=== PATIENT | female | born 1990 | race Caucasian/White ===

== ENCOUNTER 2016-07-17 21:06 | Outpatient (CLI) | payer MEDICAID ==
[~2016-07-17] VITALS: Ht 148.6 cm; Wt 61.5 kg
[2016-07-17 21:30] VITALS: BP 112/69; PULSE 73; RESP 18
[2016-07-17] MEDS ORDERED: PRENAT PO (21:33)
[2016-07-17] MEDS ORDERED: FERR134T PO (21:33)
[2016-07-17 21:52] LABS: ADD UMIC YES; URINE BILIRUBIN (Dip) NEGATIVE (NEGATIVE); URINE BLOOD (Dip) NEGATIVE (NEGATIVE); URINE COLOR LT. YELLOW (YELLOW); URINE GLUCOSE (Dip) NEGATIVE (NEGATIVE); URINE KETONES (Dip) NEGATIVE (NEGATIVE); URINE LEUKOCYTE ESTERASE (Dip) TRACE (NEGATIVE); URINE NITRITE (Dip) NEGATIVE (NEGATIVE); URINE TOTAL PROTEIN (Dip) NEGATIVE (NEGATIVE); URINE UROBILINOGEN (Dip) 0.2 E.U./dL (0.1-1.0)
[2016-07-17 22:12] LABS: BACTERIA,URINE FEW; SQUAMOUS EPITHELIAL CELL,UR MANY; URINE RBCS NONE SEEN /HPF (0)
[2016-07-17] MEDS ORDERED: TERBUTALINE 1 MG/ML INJ SC ONE (23:00)
[2016-07-17] MEDS ORDERED: LACTATED RINGER'S 1,000 ML IV SCH (23:00)
[2016-07-17] MEDS ORDERED: LACTATED RINGER'S 1,000 ML IV ONE (23:00)
[2016-07-17 23:34] LABS: ADD SCAN DIFF NO
[2016-07-17 23:37] LABS: BASOPHILS % 0.1 % (0.0-2.0); EOSINOPHILS # 0.1 10^3/ul (0.0-0.5); EOSINOPHILS % 0.9 % (0.0-7.0); HEMATOCRIT 27.6 % (37.0-47.0); HEMOGLOBIN 9.3 g/dl (12.0-16.0); LYMPHOCYTES # 2.6 10^3/ul (0.8-2.9); MEAN CORPUSCULAR HGB CONC 33.7 g/dl (32.0-37.0); MEAN PLATELET VOLUME 10.3 fl (7.4-10.4); MONOCYTE # 0.5 10^3/ul (0.3-0.9); MONOCYTES % 6.4 % (0.0-11.0); NEUTROPHILS % 60.1 % (39.0-77.0); PLATELET COUNT 163 10^3/UL (140-415); RED BLOOD COUNT 3.21 10^6/ul (4.20-5.40); RED CELL DISTRIBUTION WIDTH 12.7 % (11.5-14.5); WHITE BLOOD COUNT 8.2 10^3/ul (4.8-10.8)
--- NOTE | 2016-07-17 23:44 | RADRPT ---
PROCEDURE: US OB limited. US OB Transvaginal CLINICAL INDICATION: later TECHNIQUE: transvaginal views of the pelvis are available for review. COMPARISON: No prior studies are available for comparison. FINDINGS: The cervix is closed, measuring 4.3 cm in length. There is no funneling or dilation identified. IMPRESSION: The cervix measures 4.3 cm, without funneling or dilation. RPTAT: HBST .Boni Nance MD, MD Date Time Electronically viewed and signed by .Boni Nance MD, MD on 07/17/2016 23:44 .T/
--- NOTE | 2016-07-17 23:47 | RADRPT ---
PROCEDURE: US OB. US OB Estimated Weight CLINICAL INDICATION: labor TECHNIQUE: Multiple sonographic images of the pelvis were obtained. The images were reviewed on a PACS workstation. COMPARISON: No prior studies are available for comparison. FINDINGS: There is a single viable intrauterine gestation. Cardiac activity is present with 154 beats per min jb. There is a breech oblique maternal right presentation. Measurements were made in order to determine age. The results are as follows: BPD =8.9 cm. HC =33.0 cm. AC =32.0 cm. FL =6.6 cm. Estimated gestational age of approximately 35 weeks and 6 days. Estimated delivery date is 08/16/19 17. Estimated delivery date by last menstrual period is 08/24/2016.. The EFW = 2733 grams, 77%, . The placenta is anterior, grade 1. There is no evidence for an abruption or placenta previa. There is a normal amount of amniotic fluid with an GOLDY = 12.4 cm. IMPRESSION: Single viable intrauterine gestation of approximately 35 weeks and 6 days. The estimated date of de livery is 08/15/2016. RPTAT: HBST . .Boni Nance MD, Date Time Electronically viewed and signed by .Boni Nance MD, on 07/17/2016 23:47 .T/
--- NOTE | 2016-07-18 01:32 | QN ---
Documentation Comment Laborist Dr Toribio's pt 26 y.o. with an IUP at 34w5d c/o contractions q 20 minutes since 1200 07/17. No VB. No leaking. +FM. PMHx: none. PSHx: none. POBHx: x 2; both children are in [facility]. NKDA. BP 112/69 T=98.0 CX cl/thick/high. CX length 4.3cm BREECH. EFW 2733 grams. GOLDY 12.4cm. NST: baseline 130 bpm with accels to 160 bpm. No decels. UC's q 5-7 on admit. After IV hydration and terbutaline x 1 pt sx's resolved and she felt comfortable enough to want to go home. A: IUP at 34w 5d. False labor. P: D/C IV and D/C home. F/U scheduled 07/19. JAZIEL KLEIN MD July 18, 2016 01:32
--- NOTE | 2016-07-18 01:33 | TRIAGE ---
OB Triage Datetime Report Generated by CPN: 07/18/2016 01:33 Datetime: 07/17/2016 23:51 Stage of : OB Triage Monitor Mode: External Quality: Mild Pattern: Normal: <= 5 Contractions in 10 Minutes Resting Tone [place]: Relaxed Heart Rate FHR Baseline Rate: 140 Monitor Mode: External US Variability: Moderate 6-25 bpm Accelerations: 15X15 Decelerations: None Pain Assessment Pain Scale: 8 Pain Presence: Intermittent Pain Type: Contraction Pain Location: Abdomen Datetime: 07/17/2016 22:35 Stage of : OB Triage Labor Evaluation Frequency: 3-8 Monitor Mode: External Duration (sec)2399: 40-60 Quality: Mild Pattern: Normal: <= 5 Contractions in 10 Minutes Resting Tone [place]: Relaxed Heart Rate FHR Baseline Rate: 135 Monitor Mode: External US FHR Baseline Changes: No Baseline Change Variability: Moderate 6-25 bpm Accelerations: 15X15 Decelerations: None Category: Category I Pain Assessment Pain Scale: 8 Pain Presence: Intermittent Pain Type: Contraction Pain Location: Abdomen Datetime: 07/17/2016 21:41 Labor Evaluation Frequency: 3-8 Monitor Mode: External Duration (sec)2399: 40-60sec Quality: Mild Pattern: Normal: <= 5 Contractions in 10 Minutes Resting Tone [place]: Relaxed Heart Rate FHR Baseline Rate: 130 Monitor Mode: External US Variability: Moderate 6-25 bpm Accelerations: 15X15 Decelerations: None Category: Category I Pain Assessment Pain Scale: 8 Pain Presence: Intermittent Pain Type: Contraction Pain Location: Abdomen Vaginal Exam Dilatation (cms): 0.0 Effacement (%): 0 Station: -4 Exam By: Jose Eldridge Membrane Status: Intact Vaginal Bleeding: None Cervix, Consistency: Firm Cervix, Position: Posterior Presentation 'A': Unable to Assess Datetime: 07/17/2016 21:19 Time of Arrival: 07/17/2016 21:00 EGA: 34.4 Arrived By: Wheelchair Arrived From: Home Chief Complaint: w/ c/o ucs. Denies hx problems this Movement: Present Contractions: Irregular Time Contractions Began: 07/17/2016 12:00 Contractions: q20 Rupture of Membranes: Denies Vaginal Bleeding: None Vaginal Discharge: Denies Recent Sexual Intercouse: Denies Abdominal Trauma: Not Applicable Patient Complaints: Contractions Time Provider Notified: 07/17/2016 22:35 Provider Notified: Dr Toribio Initial Plan: EFM,SVE,IV hydration,CBC,UA,CVL,EFW, Terb Datetime: 07/17/2016 21:15 Stage of : OB Triage Maternal Assessment Level of Consciousness: Fully Conscious Headache: Denies Blurred Vision: No Respiratory Effort: Unlabored Nausea/Vomiting: Denies RUQ Epigastric Pain: Denies Facial Edema: None Labor Evaluation Frequency: placed Monitor Mode: External Resting Tone [place]: Relaxed Monitor Mode: External US Comments: FHT 150 Pain Assessment Pain Scale: 8 Pain Presence: Intermittent Pain Type: Contraction Pain Location: Abdomen
== END 2016-07-18 01:30 | disposition home or self-care (01) ==
LOC: L-D 21:06 → OBT 21:06
PROVIDERS: ATTEND Obstetrics & Gynecology
DX: O47.03 False labor before 37 completed weeks of gestation, third trimester (principal); Z3A.34 34 weeks gestation of pregnancy
CPT/HCPCS: 36415; 76815; 76817; 81001; 85025; 96360; 96361; 96372; J3105; J7120; Z7500; 81003; G0463

== ENCOUNTER 2016-08-15 20:40 | Inpatient (IN) | payer MEDICAID ==
[~2016-08-15] VITALS: Ht 149.9 cm; Wt 63.1 kg
[~2016-08-15 20:40] MED LIST: FERR134T PO; PRENAT PO
[2016-08-15 21:27] VITALS: BP 108/73; PULSE 75; RESP 18
[2016-08-15] MEDS ORDERED: CALC600T11 PO (21:29)
[2016-08-15 22:04] LABS: ADD UMIC NO; URINE BILIRUBIN (Dip) NEGATIVE (NEGATIVE); URINE BLOOD (Dip) NEGATIVE (NEGATIVE); URINE COLOR LT. YELLOW (YELLOW); URINE GLUCOSE (Dip) NEGATIVE (NEGATIVE); URINE KETONES (Dip) NEGATIVE (NEGATIVE); URINE LEUKOCYTE ESTERASE (Dip) NEGATIVE (NEGATIVE); URINE NITRITE (Dip) NEGATIVE (NEGATIVE); URINE TOTAL PROTEIN (Dip) NEGATIVE (NEGATIVE); URINE UROBILINOGEN (Dip) 0.2 E.U./dL (0.1-1.0)
--- NOTE | 2016-08-15 22:33 | RADRPT ---
PROCEDURE: US OB. US OB Estimated Weight CLINICAL INDICATION: labor TECHNIQUE: Multiple sonographic images of the pelvis were obtained. The images were reviewed on a PACS workstation. COMPARISON: No prior studies are available for comparison. FINDINGS: There is a single viable intrauterine gestation. Cardiac activity is present with 131 beats per min jb. There is a breech presentation. Measurements were made in order to determine age. The results are as follows: BPD =9.6 cm. HC =36.1 cm. AC =35.2 cm. FL =7.2 cm. Estimated gestational age of approximately 38 weeks and 2 days. The estimated date of delivery is 08/27/2016. Estimated delivery date by last menstrual period is 0 08/24/2016. The EFW = 3651 grams, 73 percentile . The placenta is anterior, grade II. There is a normal amount of amniotic fluid with an GOLDY = 9.3 cm. IMPRESSION: Single viable intrauterine gestation of approximately 38 weeks and 2 days. The estimated date of de livery is 08/27/2016. RPTAT: HBST . .Boni Nance MD, MD Date Time Electronically viewed and signed by .Boni Nance MD, on 08/15/2016 22:33 .T/
[2016-08-16] MEDS ORDERED: CARBOPROST 250 MCG INJ IM PRN ×2 (00:30→21:00)
[2016-08-16] MEDS ORDERED: METHYLERGONOVINE 0.2 MG INJ IM PRN ×2 (00:30→21:00)
[2016-08-16] MEDS ORDERED: MISOPROSTOL 200 MCG TAB PR PRN ×2 (00:30→21:00)
[2016-08-16] MEDS ORDERED: OXYTOCIN 30 UNITS/LR 500 ML IV SCH (00:30)
[2016-08-16] MEDS ORDERED: CEFAZOLIN 2 GM/50 ML (PMX) 50 ML IV SCH ×2 (00:30→21:00)
[2016-08-16] MEDS ORDERED: TERBUTALINE 1 MG/ML INJ SC ONE (00:30)
[2016-08-16] MEDS ORDERED: OXYTOCIN 30 UNITS/LR 500 ML IV PRN ×2 (00:30→21:00)
--- NOTE | 2016-08-16 00:50 | TRIAGE ---
OB Triage Datetime Report Generated by CPN: 08/16/2016 00:50 Datetime: 08/15/2016 23:59 Stage of : OB Triage Labor Evaluation Frequency: 3-7 Monitor Mode: External Duration (sec)2399: 60 Quality: Moderate Pattern: Normal: <= 5 Contractions in 10 Minutes Resting Tone [place]: Relaxed Heart Rate FHR Baseline Rate: 120 Monitor Mode: External US Variability: Moderate 6-25 bpm Accelerations: 15X15 Decelerations: Variable Category: Category II Pain Assessment Pain Scale: 7 Pain Presence: Intermittent Pain Type: Contraction Pain Location: Abdomen Vaginal Exam Dilatation (cms): 1.5 Effacement (%): 50 Station: -3 Exam By: E Chente Membrane Status: Intact Vaginal Bleeding: None Cervix, Consistency: Soft Cervix, Position: Midposition Presentation 'A': Breech Datetime: 08/15/2016 23:32 Stage of : OB Triage Labor Evaluation Frequency: placed Monitor Mode: External Resting Tone [place]: Relaxed Heart Rate FHR Baseline Rate: 120 Monitor Mode: External US Pain Assessment Pain Scale: 5 Pain Presence: Intermittent Pain Type: Contraction Pain Location: Abdomen Datetime: 08/15/2016 22:28 Heart Rate FHR Baseline Rate: 110 Variability: Moderate 6-25 bpm Datetime: 08/15/2016 21:50 Stage of : OB Triage Datetime: 08/15/2016 21:36 Stage of : OB Triage Labor Evaluation Frequency: 8-12 Monitor Mode: External Quality: Moderate Pattern: Normal: <= 5 Contractions in 10 Minutes Resting Tone [place]: Relaxed Heart Rate FHR Baseline Rate: 120 Monitor Mode: External US Variability: Moderate 6-25 bpm Accelerations: 15X15 Decelerations: None Category: Category I Pain Assessment Pain Scale: 4 Pain Presence: Intermittent Pain Type: Contraction Pain Location: Abdomen Vaginal Exam Dilatation (cms): 1.0 Effacement (%): 50 Station: -4 Exam By: Jose Eldridge Membrane Status: Intact Amniotic Fluid Amount: None Vaginal Bleeding: None Cervix, Consistency: Soft Cervix, Position: Posterior Datetime: 08/15/2016 21:22 Time of Arrival: 08/15/2016 20:37 EGA: 38.5 Arrived By: Wheelchair Arrived From: Home Chief Complaint: w/ c/o ucs Movement: Present Contractions: Irregular Time Contractions Began: 08/15/2016 08:00 Contractions: q60min Rupture of Membranes: Denies Vaginal Bleeding: None Vaginal Discharge: Denies Recent Sexual Intercouse: Denies Abdominal Trauma: Not Applicable Patient Complaints: Contractions Time Provider Notified: 08/15/2016 21:50 Provider Notified: Dr Toribio Initial Plan: EFM, SVE Datetime: 08/15/2016 20:58 Stage of : OB Triage Maternal Assessment Level of Consciousness: Fully Conscious Headache: Denies Blurred Vision: No Respiratory Effort: Unlabored Nausea/Vomiting: Denies RUQ Epigastric Pain: Denies Facial Edema: None Labor Evaluation Frequency: placed Monitor Mode: External Resting Tone [place]: Relaxed Monitor Mode: External US Comments: FHT 120 Pain Assessment Pain Scale: 4 Pain Presence: Intermittent Pain Type: Contraction Pain Location: Abdomen Datetime: 07/18/2016 01:12 Stage of : OB Triage Monitor Mode: External Quality: Mild Pattern: Normal: <= 5 Contractions in 10 Minutes Resting Tone [place]: Relaxed Heart Rate FHR Baseline Rate: 130 Monitor Mode: External US FHR Baseline Changes: No Baseline Change Variability: Moderate 6-25 bpm Accelerations: 15X15 Decelerations: None Category: Category I Pain Assessment Pain Scale: 3 Pain Presence: Intermittent Pain Type: Contraction Pain Location: Abdomen Pain Assessment Comments: Pt states she feels comfortable going home Datetime: 07/17/2016 21:19 EGA: 34.4
[2016-08-16 01:21] LABS: ADD SCAN DIFF NO
[2016-08-16 01:23] LABS: BASOPHILS % 0.3 % (0.0-2.0); EOSINOPHILS # 0.1 10^3/ul (0.0-0.5); EOSINOPHILS % 0.9 % (0.0-7.0); HEMATOCRIT 30.2 % (37.0-47.0); HEMOGLOBIN 9.8 g/dl (12.0-16.0); LYMPHOCYTES # 2.3 10^3/ul (0.8-2.9); LYMPHOCYTES % 34.2 % (15.0-51.0); MEAN CORPUSCULAR HEMOGLOBIN 27.1 pg (29.0-33.0); MEAN CORPUSCULAR HGB CONC 32.5 g/dl (32.0-37.0); MEAN CORPUSCULAR VOLUME 83.7 fl (82.0-101.0); MEAN PLATELET VOLUME 10.7 fl (7.4-10.4); MONOCYTE # 0.5 10^3/ul (0.3-0.9); MONOCYTES % 6.7 % (0.0-11.0); NEUTROPHIL # 3.9 10^3/ul (1.6-7.5); NEUTROPHILS % 57.5 % (39.0-77.0); PLATELET COUNT 148 10^3/UL (140-415); RED BLOOD COUNT 3.61 10^6/ul (4.20-5.40); RED CELL DISTRIBUTION WIDTH 13.9 % (11.5-14.5); WHITE BLOOD COUNT 6.7 10^3/ul (4.8-10.8)
[2016-08-16] MEDS ORDERED: LACTATED RINGER'S 1,000 ML IV ONE (01:30)
[2016-08-16 01:40] LABS: INR 0.9; PROTIME 12.1 Sec (12.2-14.2); PT RATIO 0.9
[2016-08-16 01:41] LABS: PARTIAL THROMBOPLASTIN TIME 25.7 Sec (25.0-35.0)
[2016-08-16] MEDS: LACTATED RINGER'S 1,000 ML IV SCH ×4 (01:46→18:12)
[2016-08-16] MEDS ORDERED: morphine SULFATE/PF (10 MG/10 ML) INJ ONE (18:46)
[2016-08-16] MEDS ORDERED: FENTAnyl 50 MCG/ML VIAL ONE (18:53)
[2016-08-16] MEDS ORDERED: PHENYLephrine (100 MCG/ML) 5ML SYG ONE (18:54)
[2016-08-16] MEDS ORDERED: OXYTOCIN 30 UNITS/LR 500 ML IV ONE (19:12)
[2016-08-16] MEDS ORDERED: ONDANSETRON 4 MG INJ ONE (19:21)
[2016-08-16] MEDS ORDERED: DEXAMETHASONE 4 MG/ML 1 ML INJ ONE (19:21)
[2016-08-16] MEDS ORDERED: NALOXONE (0.4 MG/ML) INJ IV PRN (19:30)
[2016-08-16] MEDS ORDERED: HYDROmorphONE 1 MG/ML SYG IV PRN ×2 (19:30)
[2016-08-16] MEDS ORDERED: ZOLPIDEM 5 MG TAB PO PRN (19:30)
[2016-08-16] MEDS ORDERED: DIPHENHYDRAMINE 50 MG INJ IV PRN (19:30)
[2016-08-16] MEDS ORDERED: ONDANSETRON 4 MG INJ IV PRN (19:30)
--- NOTE | 2016-08-16 20:18 | HP ---
Date/Time of Note Date/Time of Note DATE: 08/16/16 TIME: 20:13 OB - History Hx of Present Free Text/Dictation admitted C/O labor pains started 08/15/2016 Last Menstrual Period: Nov 21, 2015 Estimated Due Date: Aug 27, 2016 : 3 Para: 2 Care: Good Care Ultrasounds: Normal mid trimester US Obstetrical Complications: None Medical Complications: None Past Family/Social History * Past Medical, Surgical, Family and Obstetric Histories reviewed from chart. Blood Type: A+ Rubella: immune RPR/VDRL: Negative GBS Status: Negative HBsAG: Negative OB Admission Exam Vital Signs Vital Signs Vital Signs Date Time Temp Pulse Resp B/P Pulse Ox O2 Delivery O2 Flow Rate FiO2 08/15/16 21:27 98.3 75 18 108/73 Room Air Physical Exam HEENT: WNL Heart: Rhythm Normal Lungs: Clear, Equal Abdomen: WNL Extremities: Normal Reflexes: Normal Cervical Dilatation: Fingertip Effacement: 0% Station: -3 Membranes: Intact Heart Rate: 140's Accelerations: Accelerations Present Decelerations: No Decelerations Varibility: Marked Contractions on Admission: >10 Minutes Apart Date/Time Contractions Began: 08/15/2016 Frequency of Contractions: qH Duration: >30 seconds Intensity: Mild Last 72 hours Lab Results CBC & BMP 08/16/16 01:10 OB Assessment/Plan Other Assessment: breech presentation at term labor pains ( U/C q 4-7 min ) Other plan: proceed with primary C/S OWEN GAVIN MD August 16, 2016 20:18
--- NOTE | 2016-08-16 20:22 | OPR ---
Operative Report Planned Procedure Procedure date August 16, 2016 Procedure(s) primary C/S Performed by: OWEN GAVIN MD Assisting provider: KAREN LORA MD Anesthesiologist: SOLO CHENG Pre-procedure diagnosis term gestation labor pains bressch presentation Anesthesia Type: spinal Procedure Description Under satisfactory anaesthesia a Pfannenstiel incision was made two fingerbreadth above and parallel to the symphysis of pubis. Incision was extended laterally to the border of the Recti muscles on either sides. Incision was carried down with sharp and blunt dissection until fascia was reached. Anterior Recti muscle fascia was incised in mid portion and incision extended laterally to the border of skin incision. Fascia was mobilized from muscle superiorly and Recti muscles were from midline using sharp and blunt dissection. Peritoneum was visualized; Avoiding bowel and bladder it was incised . Incision was extended superiorly and inferiorly. Bladder blade was placed. Posterior peritoneum covering the lower segment of the uterus and lower segment of the uterus were incised. Incision was extended laterally to the border of Round Lig. on either sides and baby was delivered via total; breech extraction without difficulty . Amniotic fluid appeared clear. Cord blood was obtained and cord had 3 vessels . Placenta was delivered spontaneously and appeared intact and complete. Intrauterine cavity was rubbed with a laparotomy sponge. Uterine incision was closed in 2 layers using running stitches of No1 Monocryl. Hemostasis appeared secure. Ovaries and Fallopian tubes were within normal limits. Announcing needle, lap sponge and instrument count to be correct abdomen was closed in layers as follows: Peritoneum and Recti muscles with running stitches of 20 Vicryl. Fascia with running stitch of No 1 PDS. Subcutaneous tissue with running stitches of 20 Chromic and skin was closed using barbara. Patient tolerated the procedure well and was transferred to [facility] in good condition. Post-Procedure Post-procedure diagnosis S/P C/S Findings: Live Baby Specimen removed: No Complications: None Pt Condition post procedure: stable Disposition: PACU Physician Certification I, the undersigned physician, hereby certify that I have discussed the procedure described in this consent form with this patient (or the patient's legal account representative), including: * The risk and benefits of the procedure; * Any adverse reactions that may reasonably be expected to occur; * Any alternative efficacious methods of treatment which may be medically viable ; * The potential problems that may occur during recuperation; * Potential for blood transfusion and associated risks/benefits; and * Any research or economic interest I may have regarding this treatment. I further certify that the patient/legally responsible person was encouraged to ask question and that all questions were answered. OWEN GAVIN MD August 16, 2016 20:22
[2016-08-16] MEDS ORDERED: NA PHOSPHATE/BIPHOS 133 ML ENEMA PR PRN (21:00)
[2016-08-16] MEDS ORDERED: LANOLIN 7 GM TUBE TOP PRN (21:00)
[2016-08-16] MEDS: SENNA/DOCUSATE NA (8.6MG/50MG) TAB PO SCH (21:00)
[2016-08-16] MEDS ORDERED: CEFAZOLIN 2 GM/50 ML (PMX) 50 ML IVPB SCH (22:00)
[2016-08-16] MEDS: KETOROLAC 30 MG INJ IV PRN (23:16)
[2016-08-16 23:40] VITALS: BP 117/58; PULSE 65; RESP 18
[2016-08-17] MEDS: LACTATED RINGER'S 1,000 ML IV SCH ×4 (00:38→20:51)
[2016-08-17] MEDS: CEFAZOLIN 2 GM/50 ML (PMX) 50 ML IVPB SCH ×3 (02:54→18:38)
[2016-08-17 04:10] VITALS: BP 99/52; PULSE 82; RESP 18
[2016-08-17 06:54] LABS: ADD SCAN DIFF NO
[2016-08-17 07:01] LABS: BASOPHILS % 0.1 % (0.0-2.0); HEMATOCRIT 22.5 % (37.0-47.0); HEMOGLOBIN 7.1 g/dl (12.0-16.0); LYMPHOCYTES # 0.8 10^3/ul (0.8-2.9); LYMPHOCYTES % 7.4 % (15.0-51.0); MEAN CORPUSCULAR HEMOGLOBIN 26.5 pg (29.0-33.0); MEAN CORPUSCULAR HGB CONC 31.6 g/dl (32.0-37.0); MEAN PLATELET VOLUME 11.2 fl (7.4-10.4); MONOCYTE # 0.7 10^3/ul (0.3-0.9); MONOCYTES % 6.3 % (0.0-11.0); NEUTROPHIL # 9.4 10^3/ul (1.6-7.5); NEUTROPHILS % 85.8 % (39.0-77.0); PLATELET COUNT 129 10^3/UL (140-415); RED BLOOD COUNT 2.68 10^6/ul (4.20-5.40); RED CELL DISTRIBUTION WIDTH 14.3 % (11.5-14.5)
[2016-08-17] MEDS: CLINDAMYCIN 300 MG CAP PO SCH ×4 (07:05→23:40)
[2016-08-17 08:00] VITALS: BP 92/48; PULSE 80; RESP 18
[2016-08-17] MEDS: SENNA/DOCUSATE NA (8.6MG/50MG) TAB PO SCH ×2 (09:03→21:00)
[2016-08-17] MEDS ORDERED: BISACODYL 10 MG SUPP PR ONE ×2 (09:30→20:00)
[2016-08-17 12:00] VITALS: BP 93/49; PULSE 81; RESP 18
[2016-08-17] MEDS: KETOROLAC 30 MG INJ IV PRN (12:07)
--- NOTE | 2016-08-17 13:47 | PN ---
Date/Time of Note Date/Time of Note DATE: 08/17/16 TIME: 13:45 Assessment/Plan VTE Prophylaxis VTE Prophylaxis Intervention: ambulation Lines/Catheters IV Catheter Type (from Nrsg): Peripheral IV Assessment/Plan Assessment/Plan S/P C/S POD # 1 will advance siet and ambulate Subjective 24 Hr Interval Summary NO BM passing flatus Constitutional: BM, ambulates, flatus, improved, no complaints, urine output Pain Control: well controlled Exam/Review of Systems Vital Signs Vitals Vital Signs Date Time Temp Pulse Resp B/P Pulse Ox O2 Delivery O2 Flow Rate FiO2 08/17/16 12:00 98.0 81 18 93/49 Room Air 08/17/16 09:16 95 21 Intake and Output 08/16/16 08/16/16 08/17/16 15:00 23:00 07:00 Intake Total 1680 ml 825 ml 700 ml Output Total 350 ml 1450 ml 1050 ml Balance 1330 ml -625 ml -350 ml Exam Free Text/Dictation abdomen: soft BS + Incision: covered Constitutional: alert, oriented, well developed Psych: nl mood/affect, no complaints Head: atraumatic, normocephalic Eyes: EOMI, nl conjunctiva, nl lids, nl sclera ENMT: mucosa pink and moist, nl external ears & nose, nl lips & teeth, nl nasal mucosa & septum Neck: non-tender, supple Respiratory: clear to auscultation, normal air movement Cardiovascular: nl pulses, regular rate and rhythm Gastrointestinal: nl liver, spleen, non-tender, soft Drains None Musculoskeletal: nl extremities to inspection, nl gait and stance Extremities: normal pulses Neurological: BOOKKEEPERS SUPERVISOR II-XII intact, nl mental status, nl speech, nl strength Skin: nl turgor, rash or lesions Lymph: nl lymph nodes Results Result Diagram: 08/17/16 0624 OWEN GAVIN MD Aug 17, 2016 13:46
[2016-08-17 19:25] VITALS: BP 105/68; RESP 20
[2016-08-17] MEDS ORDERED: ACETAMINOPHEN/CODEINE #3 TAB PO PRN (19:30)
[2016-08-17] MEDS: OXYCODONE/ACETAMINOPHEN (5/325) TAB PO PRN (20:36)
[2016-08-17] MEDS: IBUPROFEN 800 MG TAB PO SCH (22:00)
[2016-08-18] MEDS: OXYCODONE/ACETAMINOPHEN (5/325) TAB PO PRN ×2 (02:16→10:56)
[2016-08-18 04:11] VITALS: BP 102/65; PULSE 65; RESP 20
[2016-08-18] MEDS: LACTATED RINGER'S 1,000 ML IV SCH (04:51)
[2016-08-18] MEDS: IBUPROFEN 800 MG TAB PO SCH ×3 (05:21→22:21)
[2016-08-18] MEDS: CLINDAMYCIN 300 MG CAP PO SCH ×4 (05:21→23:28)
[2016-08-18 08:08] LABS: ADD SCAN DIFF NO
[2016-08-18 08:22] LABS: ABNORMAL IP MESSAGE 1; HEMATOCRIT 21.1 % (37.0-47.0); MEAN CORPUSCULAR HEMOGLOBIN 26.7 pg (29.0-33.0); MEAN CORPUSCULAR HGB CONC 31.8 g/dl (32.0-37.0); MEAN CORPUSCULAR VOLUME 84.1 fl (82.0-101.0); MEAN PLATELET VOLUME 10.9 fl (7.4-10.4); PLATELET COUNT 142 10^3/UL (140-415); RED BLOOD COUNT 2.51 10^6/ul (4.20-5.40); RED CELL DISTRIBUTION WIDTH 14.8 % (11.5-14.5); WHITE BLOOD COUNT 7.5 10^3/ul (4.8-10.8)
[2016-08-18 08:26] LABS: HEMOGLOBIN 6.7 g/dl (12.0-16.0)
[2016-08-18 08:30] VITALS: BP 109/55; PULSE 68; RESP 20
[2016-08-18 08:35] VITALS: BP 105/52; PULSE 70; RESP 20
[2016-08-18 08:45] VITALS: BP 99/54; PULSE 78; RESP 20
[2016-08-18] MEDS: SENNA/DOCUSATE NA (8.6MG/50MG) TAB PO SCH ×2 (08:49→20:56)
--- NOTE | 2016-08-18 10:44 | OPPN ---
Date/Time of Note Date/Time of Note DATE: 08/18/16 TIME: 10:43 Post-Anesthesia Notes Post-Anesthesia Note Last documented vital signs Vital Signs Date Time Temp Pulse Resp B/P Pulse Ox O2 Delivery O2 Flow Rate FiO2 08/18/16 08:30 98.0 68 20 109/55 98 Room Air 08/17/16 15:05 21 Activity: WNL Respiratory function: WNL Cardiovascular function: WNL Mental status: Baseline Pain reasonably controlled: Yes Hydration appropriate: Yes Nausea/Vomiting absent: Yes SOLO CHENG Aug 18, 2016 10:44
[2016-08-18 11:04] LABS: MONOCYTE # 0.3 10^3/ul (0.3-0.9); NEUTROPHIL # 4.1 10^3/ul (1.6-7.5)
--- NOTE | 2016-08-18 14:46 | DS ---
Date/Time of Note Date/Time of Note home next day DATE: 08/18/16 TIME: 14:45 Obstetrical Discharge Record Final Diagnosis Final Diagnosis: Term delivered Other Final Diagnosis S/P C/S Section Section: Primary Primary Indication breech Condition on Discharge Physical Assessment Last Vitals: see nurses notes Voiding: Yes Bowel Movement: Yes Breast: Soft, non-tender, Filling Fundus: Firm Abdomen and Incision: soft bs + incision: healing well Episiotomy: NA Calf Tenderness: No Patient Condition: Good OWEN GAVIN MD Aug 18, 2016 14:46
--- NOTE | 2016-08-18 14:48 | DS ---
Date/Time of Note Date/Time of Note DATE: 08/18/16 TIME: 14:46 Discharge Summary Admission/Discharge Info Admit Date/Time August 16, 2016 at 00:20 Discharge Date/Time 08/19/2016 Final Diagnosis S/P C/S Patient Condition: Good Procedures primary C/S Hx of Present Illness 26 y/o female had primary C/S for breech presentation Hospital Course Uncomplicated Home Meds Reported Medications Calcium Carbonate* (Calcium Carbonate*) 600 MG Ca Tab, 600 MG PO DAILY, TAB 08/15/16 Ferrous Sulfate (Iron) 134 Mg Tablet, 134 MG PO DAILY, TAB 07/17/16 Multivit/Min/Fol Ac/Iron/Pren* ( S*) 1 Tab Tab, 1 TAB PO DAILY, TAB 07/17/16 Follow-up Plan 2-3 days in clinic for staple removal Primary Care Provider Care Physician No Primary Pending Labs Laboratory Tests Test 08/18/16 07:21 White Blood Count 7.510^3/ul (4.8-10.8) Red Blood Count 2.5110^6/ul (4.20-5.40) Hemoglobin 6.7g/dl (12.0-16.0) Hematocrit 21.1% (37.0-47.0) Mean Corpuscular Volume 84.1fl (82.0-101.0) Mean Corpuscular Hemoglobin 26.7pg (29.0-33.0) Mean Corpuscular Hemoglobin Concent 31.8g/dl (32.0-37.0) Red Cell Distribution Width 14.8% (11.5-14.5) Platelet Count 05785^3/UL (140-415) Mean Platelet Volume 10.9fl (7.4-10.4) Neutrophils % 54.0% (39.0-77.0) Band Neutrophils % 2.0% (0.0-5.0) Lymphocytes % 40.0% (15.0-51.0) Monocytes % 4.0% (0.0-11.0) Neutrophils # 4.110^3/ul (1.6-7.5) Lymphocytes # 3.010^3/ul (0.8-2.9) Monocytes # 0.310^3/ul (0.3-0.9) OWEN GAVIN MD Aug 18, 2016 14:48
--- NOTE | 2016-08-18 14:49 | PD.PPDC ---
DIGITAL MARKETING OFFICER Discharge Instruction Provider Information Physician Information 26 y/o female had primary C/S Diagnosis Final Diagnosis: S/P C/S Condition Patient Condition: Good Diet Diet: Resume Regular Diet Activity/Restrictions Activity: July Shower Restrictions: No Exercising No Lifting Nothing in the Vagina Return to Work or School: Oct 23, 2016 Follow-up Follow-up with Physician: 2, 3, Day/Days (in clinic for staple removal ) Return to clinic for DIRECTOR OF TRAINING Instructions: Fever greater than 101 Chills OB Instructions: Breast Tenderness Depression Surgical Instructions: Incisional Drainage Incisional Redness OWEN GAVIN MD Aug 18, 2016 14:49
[2016-08-18] MEDS ORDERED: Oxycodone/Acetamin (5/325) PO (14:50)
[2016-08-18] MEDS ORDERED: IBUP800T25 PO (14:50)
[2016-08-18 16:17] VITALS: BP 108/52; PULSE 83; RESP 18
[2016-08-18 19:30] VITALS: BP 109/60; PULSE 76; RESP 19
[2016-08-19 04:00] VITALS: BP 106/65; PULSE 69; RESP 18
[2016-08-19] MEDS: IBUPROFEN 800 MG TAB PO SCH ×2 (05:35→14:00)
[2016-08-19] MEDS: CLINDAMYCIN 300 MG CAP PO SCH ×2 (05:35→12:35)
[2016-08-19 08:00] VITALS: BP 109/56; PULSE 84; RESP 18
[2016-08-19] MEDS: SENNA/DOCUSATE NA (8.6MG/50MG) TAB PO SCH (08:32)
[2016-08-19] MEDS ORDERED: DIPHTH/TET/ACEL PERTUSS (ADULT) 0.5 ML VIAL IM* ONE (09:00)
[2016-08-19] MEDS ORDERED: MEASLES,MUMPS,RUBELLA VACCINE INJ SC* ONE (09:00)
[2016-08-19] MEDS: OXYCODONE/ACETAMINOPHEN (5/325) TAB PO PRN (12:35)
== END 2016-08-19 17:44 | disposition home or self-care (01) | DRG 766 ==
LOC: L-D 20:40 → OBT 20:40 → L-D 08-16 00:20 → PP1 08-16 23:40
PROVIDERS: ADMIT Obstetrics & Gynecology; ATTEND Obstetrics & Gynecology
PROC: 10D00Z1 Extraction of Products of Conception, Low, Open Approach (ICD-10-PCS; principal; 2016-08-16 18:30)
DX: O32.1XX0 Maternal care for breech presentation, not applicable or unspecified (principal); Z37.0 Single live birth; Z3A.39 39 weeks gestation of pregnancy
CPT/HCPCS: 76815; 81003; 85025; 85610; 85730; 86592; 86850; 86900; 86901; 87340; 90715; 94760; 99464; G0463; J0690; J1100; J1885; J2274; J2370; J2405; J2590; J3010; J3105; J7120

== ENCOUNTER 2017-05-14 12:49 | Emergency (ER) | END 2017-05-14 18:03 | disposition left against medical advice (07) ==